=== PATIENT | male | born 1950 | race African-American/Black ===

== ENCOUNTER 2019-07-07 09:46 | Observation (INO) | payer OTHER ==
[2019-07-07 15:26] VITALS: BMI 23.6
[2019-07-07] MEDS ORDERED: Bisacodyl 10 MG SUPP PR PRN (15:57)
[2019-07-07] MEDS ORDERED: Acetaminophen 325 MG TAB PO PRN (15:57)
[2019-07-07] MEDS ORDERED: Ondansetron ODT 4 MG TAB PO PRN (15:57)
[2019-07-07] MEDS ORDERED: HYDROcodone/Acetaminophen 5/325 mg Tablet PO PRN (15:57)
[2019-07-07] MEDS ORDERED: Senokot S 8.6-50 MG TAB PO PRN (15:57)
[2019-07-07] MEDS ORDERED: Ondansetron PF 4 MG/2 ML Vial IVP PRN (15:57)
[2019-07-07] MEDS ORDERED: hydrALAZINE 20 MG/ML VIAL SLOW IVP PRN (16:12)
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
[2019-07-07] MEDS: Lactated Ringer's 1,000 ML IV SCH (17:31)
--- NOTE | 2019-07-07 19:52 | ULT ---
BILATERAL CAROTID DUPLEX ULTRASOUND: HISTORY: TIA TECHNIQUE: Grayscale, color-flow and spectral Doppler ultrasound imaging of the extracranial carotid artery syst ems was performed bilaterally. FINDINGS: There is a small amount of plaque in the left proximal ICA The peak systolic velocity in the right ICA measures 65 cm/s with an end-diastolic velocity of 14 cm/ s and a systolic ratio of 0.71. The peak systolic velocity in the left ICA measures 65 cm/s with an end-diastolic velocity of 17 cm/s and a systolic ratio of 0.64. Flow in both vertebral arteries remains antegrade. IMPRESSION: No evidence of hemodynamically significant stenosis
[2019-07-07] MEDS ORDERED: Atorvastatin Calcium 40 MG TAB PO SCH (21:00)
[2019-07-07] MEDS: Famotidine/PF 20 mg/2ml Vial SLOW IVP SCH (21:39)
[2019-07-07] MEDS: Latanoprost 0.005% Ophth Soln 2.5 ml Bottle EA EYE SCH (21:39)
[2019-07-07] MEDS: Famotidine 20 MG TAB PO SCH (21:39)
[2019-07-07] MEDS: Terazosin HCl 1 MG CAP PO SCH (21:40)
[2019-07-07] MEDS: sulfaSALAzine 500 MG TAB PO SCH (21:40)
[2019-07-08] MEDS: Lactated Ringer's 1,000 ML IV SCH ×5 (01:21→21:33)
[2019-07-08 05:21] LABS: Cardiac Risk 2.9 (Less than 4.5)
[2019-07-08] MEDS: sulfaSALAzine 500 MG TAB PO SCH ×2 (08:29→21:33)
[2019-07-08] MEDS: Famotidine 20 MG TAB PO SCH ×2 (08:29→21:33)
[2019-07-08] MEDS: Enoxaparin Sodium 40 MG/0.4 ML SYRINGE SC SCH (08:29)
[2019-07-08] MEDS: Hydroxychloroquine Sulfate 200 MG TAB PO SCH (08:29)
[2019-07-08] MEDS: Finasteride 5 MG TAB PO SCH (08:30)
[2019-07-08] MEDS: Aspirin 325 mg Enteric Coated Tablet PO SCH (08:30)
[2019-07-08] MEDS: Famotidine/PF 20 mg/2ml Vial SLOW IVP SCH ×2 (08:30→21:34)
--- NOTE | 2019-07-08 11:28 | MRI ---
MRI BRAIN NONCONTRAST: DATE: 07/08/2019 HISTORY: 69-year-old male with TIA. Left upper extremity weakness. COMPARISON: None FINDINGS: To the right of the splenium of corpus callosum, abutting the posterior medial edge of the right late ral ventricle, there is a 1 cm focus of T2 hyperintensity which is moderately hyperintense on the diffusion-weighted images. Uncertain whether this is T2 shine through or actual mild restricted diffu abram. Regions of encephalomalacia and gliosis at the anterior inferior aspects of the bilateral frontal lob es, right greater than left, representing sequelae of prior traumatic brain injury. Small patchy focus of hyperintense T2 signal at the lateral aspect of the right temporal lobe posteri blessing could represent small nonacute infarction or another focus of old traumatic injury. Several subcentimeter foci of CSF signal in an anteroposterior linear array along the left centrum se miovale. These could represent prior GEORGINA (shear injury). The other possibility is old watershed distribution multiple tiny infarctions. Diffuse moderate chronic ischemic white matter changes of the torres radiata and centrum semiovale. No mass effect, midline shift, extra-axial fluid collection or obstructive hydrocephalus.. IMPRESSION: 1) evidence of previous traumatic brain injury in the anterior inferior bilateral frontal lobes, righ t greater than left. 2) small old insult at lateral aspect of right temporal lobe, either old trauma or small old infarcti on. 3) array of tiny focal lesions in left cerebral deep white matter, either representing old diffuse ax onal injury or old watershed distribution white matter lacunar infarctions. The former is favored. 4) moderate chronic ischemic white matter changes. 5) small 1 cm white matter lesion at the right side of the splenium of corpus callosum. Uncertain whe ther this represents a subacute white matter lacunar infarction or old insult, or perhaps some other type of active pathology. 6) Consider follow-up MRI of brain with and without contrast in 1 to 4 weeks.
--- NOTE | 2019-07-08 13:48 | PDOC.HOSPP ---
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 symptoms have resolved and patient is at baseline. Denied Chest pain, dizziness, SOB, fever, cough or leg swelling. - Objective Vital Signs & Weight: Vital Signs (12 hours) Temp Pulse Pulse Pulse Resp BP BP 07/08/19 11:59 98.4 F 55 L 16 07/08/19 09:48 55 L 65 155/90 H 157/85 H 07/08/19 07:50 98.5 F 63 16 07/08/19 03:25 98.1 F 61 16 BP Pulse Ox 07/08/19 11:59 148/85 H 98 07/08/19 09:48 07/08/19 07:50 165/92 H 97 07/08/19 03:25 131/76 91 L Weight Weight 169 lb 9 oz I&O: 07/07/19 07/08/19 07/09/19 06:59 06:59 06:59 Intake Total 2065 480 Output Total 1100 900 Balance [phone] -[phone] Hospitalist ROS - Medication Medications: Active Medications Generic Name Dose Route Start Last Admin Trade Name Freq PRN Reason Stop Dose Admin Aspirin 325 mg 07/08/19 09:00 07/08/19 08:30 Ecotrin PO 325 mg DAILY KHURRAM Administration Enoxaparin Sodium 40 mg 07/08/19 09:00 07/08/19 08:29 Lovenox SC 40 mg 0900 KHURRAM Administration Famotidine 20 mg 07/07/19 21:00 07/08/19 08:30 Pepcid SLOW IVP Not Given Q12HR KHURRAM Famotidine 20 mg 07/07/19 21:00 07/08/19 08:29 Pepcid PO 20 mg BID KHURRAM Administration Finasteride 5 mg 07/08/19 09:00 07/08/19 08:30 Proscar PO 5 mg DAILY KHURRAM Administration Hydroxychloroquine Sulfate 200 mg 07/08/19 09:00 07/08/19 08:29 Plaquenil PO 200 mg DAILY KHURRAM Administration Lactated Ringer's 1,000 mls @ 200 mls/hr 07/08/19 08:54 07/08/19 10:56 Lactated Ringer's IV Not Given .Q5H KHURRAM Latanoprost 1 drop 07/07/19 21:00 07/07/19 21:39 Xalatan 0.005% Ophth Soln EA EYE 1 drp HS KHURRAM Administration Sulfasalazine 500 mg 07/07/19 21:00 07/08/19 08:29 Azulfidine PO 500 mg BID KHURRAM Administration Terazosin HCl 1 mg 07/07/19 21:00 07/07/19 21:40 Hytrin PO 1 mg QPM KHURRAM Administration - Exam General Appearance: awake alert Eye: anicteric sclera ENT: normocephalic atraumatic Neck: supple, symmetric, no JVD Heart: RRR, no murmur Respiratory: no wheezes, no rales, no ronchi, normal chest expansion Gastrointestinal: soft, non-tender, non-distended, normal bowel sounds Extremities: no cyanosis, no edema Neurological: cranial nerve grossly intact, no focal deficits Psychiatric: normal affect, A&O x 3 Hosp A/P (1) TIA (transient ischemic attack) Code(s): G45.9 - TRANSIENT CEREBRAL ISCHEMIC ATTACK, UNSPECIFIED Status: Acute (2) Rhabdomyolysis Code(s): M62.82 - RHABDOMYOLYSIS Status: Acute (3) Hepatitis C infection Code(s): B19.20 - UNSPECIFIED VIRAL HEPATITIS C WITHOUT HEPATIC COMA Status: Acute (4) Liver cirrhosis Code(s): K74.60 - UNSPECIFIED CIRRHOSIS OF LIVER Status: Acute (5) Rheumatoid arthritis Code(s): M06.9 - RHEUMATOID ARTHRITIS, UNSPECIFIED Status: Acute - Plan Increase IVF rate due to increasing CK level. Hold lipitor. Continue aspirin and other medications. Consult Neurology as MRI is equivocal. Await Echo. PT/OT to continue
[2019-07-08] MEDS: Latanoprost 0.005% Ophth Soln 2.5 ml Bottle EA EYE SCH (21:33)
[2019-07-08] MEDS: Terazosin HCl 1 MG CAP PO SCH (21:33)
[2019-07-09] MEDS: Lactated Ringer's 1,000 ML IV SCH ×4 (03:52→17:43)
[2019-07-09 06:20] LABS: ALT (SGPT) 17 U/L (8-55); AST (SGOT) 40 U/L (5-34); Albumin 3.9 g/dL (3.4-4.8); Alkaline Phosphatase 69 U/L (40-110); Anion Gap 12 mmol/L (10-20); BUN (Urea Nitrogen) 11 mg/dL (8.4-25.7); Bilirubin, Total 0.6 mg/dL (0.2-1.2); CK (CPK) 706 U/L (30-200); Calc. Creatinine Clearance 65 mL/min (70-130); Calcium 9.6 mg/dL (7.8-10.44); Carbon Dioxide 26 mmol/L (23-31); Chloride 106 mmol/L (98-107); Estimated GFR-MDRD 76; Globulin 4.2 g/dL (2.4-3.5); Glucose 92 mg/dL (80-115); Potassium 4.2 mmol/L (3.5-5.1); Protein, Total 8.1 g/dL (5.8-8.1); Sodium 140 mmol/L (136-145)
[2019-07-09] MEDS: Hydroxychloroquine Sulfate 200 MG TAB PO SCH (09:27)
[2019-07-09] MEDS: Enoxaparin Sodium 40 MG/0.4 ML SYRINGE SC SCH (09:27)
[2019-07-09] MEDS: Aspirin 325 mg Enteric Coated Tablet PO SCH (09:27)
[2019-07-09] MEDS: sulfaSALAzine 500 MG TAB PO SCH (09:27)
[2019-07-09] MEDS: Finasteride 5 MG TAB PO SCH (09:28)
[2019-07-09] MEDS: Famotidine/PF 20 mg/2ml Vial SLOW IVP SCH (09:28)
[2019-07-09] MEDS: Famotidine 20 MG TAB PO SCH (09:28)
[2019-07-09 15:55] VITALS: BP 122/80; TEMP 98.8
[2019-07-09] MEDS ORDERED: Prevnar 13-Val Conj/PF 0.5 ML SYRINGE IM ONE (17:30)
[2019-07-09] MEDS: Latanoprost 0.005% Ophth Soln 2.5 ml Bottle EA EYE SCH (18:13)
[2019-07-10] MEDS ORDERED: Prevnar 13-Val Conj/PF 0.5 ML SYRINGE IM ONE (09:00)
--- NOTE | 2019-07-10 09:27 | DIS ---
DATE OF ADMISSION: 07/07/2019 DATE OF DISCHARGE: 07/09/2019 DISCHARGE DIAGNOSES: 1. Transient ischemic attack. 2. Rhabdomyolysis. 3. Chronic hepatitis C infection. 4. Liver cirrhosis. 5. Rheumatoid arthritis. 6. Traumatic brain injury features on MRI. 7. [id number] ischemic white matter changes on MRI. CONSULTS: Neurology. HOSPITAL COURSE: A 69-year-old [facility] inmate with past medical history significant for hypertension, liver cirrhosis, and chronic hepatitis C infection, admitted with acute onset of left-sided weakness and numbness associated with a fall. Symptoms started improving subsequently and was almost resolved. At that time, the patient presented to the emergency room with only deficit being mild numbness of the left hand and left lower face. Impression of TIA was made, and the patient was started on aspirin and neuro checks. The patient also was found to have elevated CPK consistent with rhabdomyolysis, hence was started on IV fluid therapy. Further evaluation with MRI of the brain showed features of prior traumatic brain injury as well as small old insult at lateral aspect of right temporal lobe either old trauma or small old infarction as well as an array of tiny focal lesions in the left cerebral deep white matter either representing old diffuse axonal injury or old watershed distribution white matter lacunar infarction. The patient also was noted to have moderate chronic ischemic white matter changes and a small 1 cm white matter lesion at the right side of the splenium of corpus callosum of unclear etiology, which may represent subacute white matter lacunar infarction or old insult. Due to inconclusive nature of the MRI, followup MRI with and without contrast was recommended by Radiology in 1 to 2 weeks. The patient received PT and OT and was ambulating without support. Facial numbness and left hand numbness also resolved completely. The patient also was seen by neurologist, who recommended antiplatelet therapy with aspirin. The patient also had carotid Doppler, which showed no hemodynamically significant stenosis. PHYSICAL EXAMINATION: VITAL SIGNS: Temperature 98.8, pulse 70, respiratory rate 20, SpO2 of 99% on room air, and blood pressure is 122/80. GENERAL: Elderly male, in no obvious distress. Afebrile. Anicteric. Acyanotic. HEENT: Normocephalic and atraumatic. Oral mucosa is moist. CARDIOVASCULAR: Regular rhythm and rate with normal heart sounds 1 and 2. No murmur was appreciated. RESPIRATORY: Fair air entry bilaterally with no crackle or rhonchi or use of accessory muscles. GI: Full, soft, nontender, and nondistended with normal bowel sounds. EXTREMITIES: Grossly normal looking, atraumatic with no edema or erythema. ASSEMBLY MECHANIC: Conscious, alert, and oriented x3 with appropriate mental status. Cranial nerves 2 through 12 are grossly intact. The patient is ambulant. DISCHARGE CONDITION: Improved. DISCHARGE DISPOSITION: [facility] the [facility] DISCHARGE MEDICATIONS: 1. Calcium carbonate with vitamin D ([place]) 250 mg p.o. b.i.d. 2. Finasteride 5 mg p.o. daily. 3. Hydroxychloroquine 200 mg p.o. daily. 4. Latanoprost one drop to each eye at bedtime. 5. Polyvinyl alcohol-povidone two drops to each eye b.i.d. 6. Sulfasalazine 500 mg p.o. b.i.d. 7. Terazosin 1 mg p.o. daily at bedtime. 8. Aspirin 325 mg p.o. daily. 9. Acetaminophen 650 mg q.4 p.r.n. for pain. Note that, Lipitor which was initially started was discontinued due to rhabdomyolysis. Job ID: [id number]
== END 2019-07-09 18:34 ==
LOC: EEVIPCON 09:46 → ERS 09:46 → 2SE 12:30
PROVIDERS: ADMIT Internal Medicine Nephrology; ATTEND Internal Medicine Nephrology
DX: G45.9 Transient cerebral ischemic attack, unspecified (principal); M62.82 Rhabdomyolysis; B18.2 Chronic viral hepatitis C; K74.60 Unspecified cirrhosis of liver; M06.9 Rheumatoid arthritis, unspecified; M10.9 Gout, unspecified; I10 Essential (primary) hypertension; N40.0 Benign prostatic hyperplasia without lower urinary tract symptoms; R26.9 Unspecified abnormalities of gait and mobility; F11.11 Opioid abuse, in remission; Z79.899 Other long term (current) drug therapy; Z88.0 Allergy status to penicillin
CPT/HCPCS: 36415; 70551; 80053; 80061; 82550; 84484; 90471; 90670; 93306; 93880; 96360; 96361; 96372; 99285; G0009; G0378; J1650